=== PATIENT | male | born 2000 | race Caucasian/White ===

== ENCOUNTER 2025-08-14 08:30 | Outpatient (CLI) | payer OTHER, SELFPAY | END 2025-08-14 08:31 | disposition home or self-care (01) | LOC: NFLDREF 08-16 09:31 | PROVIDERS: PCP Physician Assistant Medical; Referring Provider Physician Assistant Medical; Visit Provider Physician Assistant Medical | DX: G47.00 Insomnia, unspecified (principal); Z13.9 Encounter for screening, unspecified; R53.83 Other fatigue | CPT/HCPCS: 80053; 80061; 82306; 82607; 82728; 84443 ==

== ENCOUNTER 2025-10-03 08:25 | Outpatient (CLI) | payer OTHER, SELFPAY | END 2025-10-03 08:26 | disposition home or self-care (01) | LOC: NFLDREF 10-09 17:44 | PROVIDERS: PCP Physician Assistant Medical; Referring Provider Physician Assistant Medical; Visit Provider Physician Assistant Medical | DX: E55.9 Vitamin D deficiency, unspecified (principal) | CPT/HCPCS: 82306 ==

== ENCOUNTER 2025-10-03 08:46 | Outpatient (CLI) | payer OTHER, SELFPAY ==
[2025-10-03 16:30] LABS: Chloride* 102 mmol/L (96-114); Potassium* 4.0 mmol/L (3.6-5.1); Sodium* 135 mmol/L (135-149)
[2025-10-03 16:32] LABS: Blood Urea Nitrogen* 10 mg/dL (5-24); Creatinine* 0.7 mg/dL (0.5-1.5); Estimated Glomerular Filt Rate 133 ml/min
[2025-10-03 16:33] LABS: Anion Gap 11 mEq/L (7-15); Calcium* 9.0 mg/dL (8.4-10.6); Carbon Dioxide* 22 mmol/L (20-32); Glucose* 92 mg/dL (60-115)
[2025-10-05 11:09] LABS: Testosterone, Adult Male 54 ng/dL (300-1080)
== END 2025-10-03 08:47 | disposition home or self-care (01) ==
LOC: NPINS 08:48
PROVIDERS: PCP Physician Assistant Medical; Visit Provider Advanced Practice Midwife
DX: Z51.81 Encounter for therapeutic drug level monitoring (principal); Z79.899 Other long term (current) drug therapy; E55.9 Vitamin D deficiency, unspecified
CPT/HCPCS: 80048; 84403